=== PATIENT | female | born 1980 ===

== ENCOUNTER 2021-03-06 20:34 | Observation (INO) | payer OTHER ==
[2021-03-03 10:44] LABS: Eosinophils # (Auto) 0.1 K/mm3 (0.0-0.4); Eosinophils % (Auto) 2.2 % (0.0-4.3); Hematocrit 23.8 % (30.3-42.9); Hemoglobin 7.5 gm/dl (10.1-14.3); Lymphocytes # (Auto) 1.5 K/mm3 (1.2-5.4); Lymphocytes % (Auto) 33.3 % (13.4-35.0); Mean Corpuscular HGB Conc 32 % (30-34); Mean Corpuscular Volume 73 fl (79-97); Monocytes # (Auto) 0.3 K/mm3 (0.0-0.8); Monocytes % (Auto) 5.8 % (0.0-7.3); Platelet Count 267 K/mm3 (140-440); Red Blood Count 3.26 M/mm3 (3.65-5.03); Red Cell Distribution Width 19.2 % (13.2-15.2)
--- NOTE | 2021-03-03 14:24 | Anesthesia Consultation ---
Anesthesia Consult and Med Hx Date of service: 03/07/21 - Airway Anesthetic Teeth Evaluation: Caps ROM Head & Neck: Adequate Mental/Hyoid Distance: Adequate Mallampati Class: Class II Intubation Access Assessment: Good - Pre-Operative Health Status ASA Pre-Surgery Classification: ASA2 Proposed Anesthetic Plan: General Nerve Block: TAP - Pulmonary Hx Smoking: No Hx Sleep Apnea: No - Central Nervous System Hx Psychiatric Problems: No - Gastrointestinal Hx Gastroesophageal Reflux Disease: No - Hematic Hx Anemia: Yes (Hgb 7.5) Hx Sickle Cell Disease: No - Other Systems Hx Cancer: No Hx Obesity: Yes - Additional Comments Anesthesia Medical History Comments: Mostly [place]ian-speaking; son present to interpret
--- NOTE | 2021-03-06 18:26 | History and Physical Report ---
History of Present Illness Date of examination: 03/06/21 Chief complaint: Dysfunctional uterine bleeding Uterine fibroids failed medical management desiring definitive therapy with surgical management. History of present illness: 40-year-old -0-0-3 with dysfunctional uterine bleeding and a large submucosal fibroid that failed outpatient medical management and minimally invasive surgical management. Patient with significant anemia unresponsive to hormonal therapy Patient desires definitive treatment in the form of a hysterectomy. 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 Family/Genetic History: heart disease, hypertension Social history: no significant social history Medications and Allergies Allergies Allergy/AdvReac Type Severity Reaction Status Date / Time No Known Allergies Allergy Unverified 03/01/21 17:40 Home Medications Medication Instructions Recorded Confirmed Last Taken Type Ferrous Sulfate [Feosol 325 MG tab] 1 tab PO BID 03/01/21 03/01/21 Unknown History Ibuprofen [Motrin] 600 mg PO Q8H PRN 03/01/21 03/01/21 Unknown History Active Meds: Active Medications Acetaminophen (Acetaminophen 500 Mg Tab) 1,000 mg PO ONCE ONE Stop: 03/07/21 06:01 Celecoxib (Celecoxib 200 Mg Cap) 400 mg PO PREOP NR Stop: 03/07/21 23:59 Fentanyl (Fentanyl 100 Mcg/2 Ml Inj) 100 mcg IV ONCE NR Stop: 03/07/21 23:59 Lactated Ringer's (Lactated Ringers) 1,000 mls @ 125 mls/hr IV DIRECT BINDU Lactated Ringer's (Lactated Ringers) 1,000 mls @ 125 mls/hr IV DIRECT BINDU Cefazolin Sodium 2 gm/ Sodium (Chloride) 100 mls @ 200 mls/hr IV ONCE ONE; Protocol Stop: 03/07/21 08:59 Magnesium Oxide (Magnesium Oxide 400 Mg Tab) 400 mg PO ONCE ONE Stop: 03/07/21 06:01 Midazolam HCl (Midazolam 2 Mg/2 Ml Inj) 2 mg IV PREOP NR Stop: 03/07/21 23:59 Scopolamine (Scopolamine Transdermal Patch 72 Hr) 1 each TD PREOP NR Stop: 03/07/21 21:00 Review of Systems All systems: negative (vaginal bleeding) - Vital Signs Vital signs: Vital Signs Temp Pulse Resp BP Pulse Ox 98.4 F 64 20 139/73 100 03/03/21 17:44 03/03/21 17:44 03/03/21 17:44 03/03/21 17:44 03/03/21 17:44 Temp Pulse Resp BP Pulse Ox 98.4 F 64 20 139/73 100 03/03/21 17:44 03/03/21 17:44 03/03/21 17:44 03/03/21 17:44 03/03/21 17:44 - Physical Exam Breasts: Positive: deferred Cardiovascular: Regular rate Lungs: Positive: Clear to auscultation Abdomen: Positive: normal appearance, soft, normal bowel sounds Genitourinary (Female): Positive: normal external genitalia, normal perenium Vagina: Positive: normal moisture Anus/Rectum: Positive: normal perianal skin Extremities: Positive: normal Deep Tendon Reflex Grade: Normal +2 Results Result Diagrams: 03/03/21 10:30 All other labs normal. Assessment and Plan [facility] transfuse two units PRBC NPO after midnight informed consent to OR for [facility] in AM Anupama Mar MD
[~2021-03-06 20:34] MED LIST: LACTATED RINGERS 1,000 ML IV SCH
[2021-03-06 21:34] LABS: Hematocrit 25.1 % (30.3-42.9); Hemoglobin 7.4 gm/dl (10.1-14.3); Mean Corpuscular HGB Conc 30 % (30-34); Mean Corpuscular Volume 74 fl (79-97); Platelet Count 299 K/mm3 (140-440); Red Blood Count 3.38 M/mm3 (3.65-5.03); Red Cell Distribution Width 19.2 % (13.2-15.2)
[2021-03-06] MEDS ORDERED: SODIUM CHLORIDE 0.9% 500 ML 500 ML IV ONE (23:21)
[2021-03-06] MEDS ORDERED: ceFAZolin/Water 2 GM/20 ML 2 GM/20 ML SYRINGE IV NR (23:59)
[2021-03-06] MEDS ORDERED: CELECOXIB 200 MG CAP PO NR (23:59)
[2021-03-07] MEDS ORDERED: fentaNYL 100 MCG/2 ML INJ IV NR (06:00)
[2021-03-07] MEDS ORDERED: SCOPOLAMINE TRANSDERMAL PATCH 72 HR TD NR (06:00)
[2021-03-07] MEDS ORDERED: LACTATED RINGERS 1,000 ML IV SCH (06:00)
[2021-03-07] MEDS ORDERED: MIDAZOLAM 2 MG/2 ML INJ IV NR (06:00)
[2021-03-07] MEDS ORDERED: MAGNESIUM OXIDE 400 MG TAB PO ONE (06:00)
[2021-03-07] MEDS ORDERED: ACETAMINOPHEN 500 MG TAB PO ONE (06:00)
--- NOTE | 2021-03-07 08:08 | Progress Note ---
Assessment and Plan Complete transfusion Estrogen Repeat CBC DC to home in stable condition Anupama Mar MD Subjective - Subjective Date of service: 03/07/21 Interval history: At bedside patient awake alert and oriented x3 in no acute distress. She is receiving her second unit of PRBCs I have explained to the patient that she will be discharged today to reschedule her hysterectomy second to the need for me to be at an acute obstetrical emergency. I have explained to the patient that the plan is for her to receive conjugated estrogen x1 dose, repeat CBC 4 hours after completion of second unit and DC to home. I have notified the office surgical orderly to reschedule this patient CARLOS for a total vaginal hysterectomy. Patient reports: appetite normal, voiding normally, pain well controlled, ambulating normally Objective - Vital Signs Latest vital signs: Vital Signs Temp Pulse Resp BP Pulse Ox 03/07/21 06:09 97.9 F 72 18 104/51 99 03/07/21 05:39 98 F 67 16 109/59 98 03/07/21 05:09 97.6 F 62 18 118/64 98 03/07/21 04:54 97.9 F 65 18 106/50 65 L 03/07/21 04:29 98 F 83 18 106/54 99 03/07/21 04:20 98 F 72 18 115/61 100 03/07/21 03:59 98.2 F 73 16 114/56 99 03/07/21 03:40 98.3 F 68 16 117/55 99 03/07/21 03:00 98.2 F 70 16 109/66 100 03/07/21 02:22 98.1 F 69 18 121/54 99 03/07/21 02:00 98.3 F 72 16 111/56 100 03/07/21 01:44 98.2 F 65 18 112/53 99 03/07/21 01:30 98.3 F 63 18 110/53 100 03/07/21 00:28 98.5 F 68 18 119/57 100 Intake and Output 03/06/21 03/07/21 03/07/21 23:59 07:59 15:59 Intake Total 0 Balance 0 Intake: Blood Product 0 Leukoreduced Red Blood 0 Cells Unit [id number] Leukoreduced Red Blood 0 Cells Unit [id number] Other: Voiding Method Toilet Weight 86.183 kg - Exam Breasts: Present: deferred Cardiovascular: Present: Regular rate Lungs: Present: Clear to auscultation Abdomen: Present: normal appearance, soft, normal bowel sounds Uterus: Present: firm Extremities: Present: normal Deep Tendon Reflex Grade: Normal but brisk +3 - Labs Labs: Abnormal lab results 03/06/21 03/06/21 Range/Units 21:15 21:20 RBC 3.38 L (3.65-5.03) M/mm3 Hgb 7.4 L (10.1-14.3) gm/dl Hct 25.1 L (30.3-42.9) % MCV 74 L (79-97) fl MCH 22 L (28-32) pg RDW 19.2 H (13.2-15.2) % Crossmatch See Detail
[2021-03-07] MEDS ORDERED: ESTROGENS, CONJUGATED 25 MG INJ IV SCH (09:00)
--- NOTE | 2021-03-07 12:10 | Discharge Summary ---
Providers - Providers Date of Admission: 03/06/21 20:37 Date of discharge: 03/07/21 Attending physician: PB DUKE MD Primary care physician: [facility] Hospitalization Reason for admission: other (Severe anemia requiring blood transfusion, patient received 2 units of PRBCs) Disposition: TO HOME OR SELFCARE Plan - Provider Discharge Summary Activity: routine Diet: routine Instructions: routine Additional instructions: [] Smoking cessation referral if applicable(refer to patient education folder for contact #) [] Refer to [facility] Booklet Call your doctor immediately for: * Fever > 100.5 * Heavy vaginal bleeding ( >1 pad per hour) * Severe persistent headache * Shortness of breath * Reddened, hot, painful area to leg or breast * Drainage or odor from incision. * Keep incision clean and dry at all times and follow doctor's instructions regarding bathing/showering - Follow up plan Follow up: PRIMARY CARE, [Primary Care Provider] - 7 Days
[2021-03-07 15:19] LABS: Hematocrit 30.4 % (30.3-42.9); Hemoglobin 9.6 gm/dl (10.1-14.3); Mean Corpuscular HGB Conc 32 % (30-34); Mean Corpuscular Volume 77 fl (79-97); Platelet Count 250 K/mm3 (140-440); Red Blood Count 3.94 M/mm3 (3.65-5.03); Red Cell Distribution Width 19.6 % (13.2-15.2)
[2021-03-07 16:11] VITALS: BP 108/67
== END 2021-03-07 15:50 | disposition home or self-care (01) ==
LOC: OR 20:34 → INTOOBSV 20:37 → OB 20:37
PROVIDERS: ADMIT Obstetrics & Gynecology; ATTEND Obstetrics & Gynecology
DX: N93.8 Other specified abnormal uterine and vaginal bleeding (principal); Z20.822 Contact with and (suspected) exposure to COVID-19; D64.9 Anemia, unspecified; I10 Essential (primary) hypertension; I51.9 Heart disease, unspecified
CPT/HCPCS: 36415; 36430; 84703; 85025; 85027; 86850; 86900; 86901; 86920; 96365; 96375; G0378; J0690; J1410; J7120; P9016; U0003